=== PATIENT | female | born 1960 | race Caucasian/White ===

== ENCOUNTER → 2023-12-19 12:32 | Outpatient (REF) | payer OTHER, SELFPAY | LOC: RAD 12:32 | PROVIDERS: ATTENDING PHYSICIAN Internal Medicine Cardiovascular Disease; FAMILY PHYSICIAN Internal Medicine | DX: I65.23 Occlusion and stenosis of bilateral carotid arteries (principal) | CPT/HCPCS: 93880 ==

== ENCOUNTER → 2024-01-17 15:54 | Outpatient (REF) | payer OTHER, SELFPAY | LOC: WDC 15:54 | PROVIDERS: ATTENDING PHYSICIAN Obstetrics & Gynecology Gynecology; FAMILY PHYSICIAN Internal Medicine | DX: Z12.31 Encounter for screening mammogram for malignant neoplasm of breast (principal) | CPT/HCPCS: 77063; 77067 ==

== ENCOUNTER 2024-03-11 17:54 | Emergency (ER) | payer OTHER, SELFPAY ==
[2024-03-11 18:00] VITALS: BP 206/101
[2024-03-11 18:13] LABS: % Basophils 0.4 % (0-2); % Eosinophils 0.7 % (0-6); % Immature Granulocytes 0.2 % (0-0.5); % Lymphocytes 32.7 % (20.5-51.1); % Monocytes 9.9 % (1.7-9.3); % Neutrophils 56.1 % (42.2-75.2); Absolute Eosinophils 0.1 10^3/uL (0-0.7); Absolute Lymphocytes 2.8 10^3/uL (1.2-3.4); Absolute Monocytes 0.8 10^3/uL (0.1-0.6); Absolute Neutrophils 4.8 10^3/uL (1.4-6.5); Hematocrit 43.1 % (37.0-47.0); Hemoglobin 15.1 g/dL (12.0-16.0); Mean Corpuscular Hgb 33.3 pg (27.0-31.0); Mean Corpuscular Volume 95.1 fL (81.0-99.0); Nucleated Red Blood Cells % 0 %; Platelet Count 209 10^3/uL (130-400); Red Blood Cell Count 4.53 10^6/uL (4.20-5.40); Red Cell Dist. Width 12.6 % (11.5-14.5); White Blood Cell Count 8.5 10^3/uL (4.8-10.8)
[2024-03-11 18:32] LABS: ALT (SGPT) 36 U/L (0-35); AST (SGOT) 33 U/L (14-36); Albumin 4.5 g/dl (3.5-5.0); Alkaline Phosphatase 79 U/L (38-126); Blood Urea Nitrogen 14 mg/dl (7-17); Calcium 9.6 mg/dl (8.4-10.2); Carbon Dioxide 30 mmol/L (22-30); Chloride 102 mmol/L (98-107); Glucose 116 mg/dl (70-99); Magnesium 1.9 mg/dl (1.6-2.3); Potassium 3.9 mmol/L (3.5-5.1); Sodium 138 mmol/L (135-145); Total Bilirubin 0.5 mg/dl (0.2-1.3); Total Protein 6.4 g/dl (6.3-8.2); eGFR > 60.00
[2024-03-11 18:48] LABS: Troponin I < 0.012 ng/ml
[2024-03-11 19:03] LABS: TSH Reflex To Free T4 1.44 uIU/ml (0.47-4.68)
--- NOTE | 2024-03-11 20:01 | ED.GENMED ---
History of Present Illness
General
Chief Complaint: Heart Rate Problem
Time Seen by Provider: 03/11/24 19:36
History of Present Illness
History of Present Illness:
63-year-old female with history of hypertension, hyperlipidemia, coronary artery disease status post stent to the RCA in 2017 presents to the emergency department for evaluation of intermittent palpitations and elevated blood pressure ongoing for
the past several days. She took an EKG with her Apple Watch that was concerning for A-fib. She does have some symptoms currently. Denies any chest pain or difficulty breathing. Notes a history of very tough to control blood pressure issues,
currently on 100 mg of losartan and 30 mg of hydralazine, historically did not tolerate beta-blockers or calcium channel blockers due to side effects
Past History
Past History
ED Past Medical History: GERD, [place] and Other (Vasculitis, rheumatoid arthritis)
ED Past Surgical History: Cardiac (Cardiac stent) and Orthopedic (Left hip replacement)
Social History
Tobacco: Non-smoker
Alcohol: None
Drug: None
Living: with family
Employment: Employed
Family History
Family History: Hypertension
Review of Systems
Review of Systems
Allergies reviewed?: Yes
All Other Systems: ROS reviewed and negative except as documented in HPI and ROS
Phy Exam
Physical Exam
Physical Exam:
GEN: Well appearing, NAD, WDWN
HEENT: Oral mucosa moist, no scleral icterus
Cardiac: Regular rate and rhythm with occasional extrasystoles, no murmurs
Lung: No respiratory distress, no tachypnea
MSK: No gross deformity or injuries
Skin: Good color, no pallor or jaundice, no rashes
Neuro: AO x3, moves all extremities freely
Psych: Calm, cooperative
Course
Orders/Labs/Results
Orders:
Orders
03/11/24 17:55
EKG [Electrocardiogram (*1)] Urgent
Reason for Study: Atrial Fibrillation
EKG- Treatment ONCE
03/11/24 18:06
Complete Blood Count/With Diff Urgent
Comprehensive Metabolic Panel Urgent
Magnesium Urgent
TSH Reflex To Free T4 Urgent
Troponin I Urgent
Abnormal Lab Results
03/11/24
18:06
MCH 33.3 H pg
(27.0-31.0)
Absolute Monos (auto) 0.8 H 10^3/uL
(0.1-0.6)
Monocytes % 9.9 H %
(1.7-9.3)
Glucose 116 H mg/dl
(70-99)
ALT 36 H U/L
(0-35)
03/11/24 18:06
03/11/24 18:06
Vital Signs
Initial and Last Documented VS:
Initial Vital Signs
Temp Pulse Resp BP Pulse Ox
98.2 F 78 18 206/101 98
03/11/24 18:00 03/11/24 18:00 03/11/24 18:00 03/11/24 18:00 03/11/24 18:00
Last Documented Vital Signs
Temp Pulse Resp BP Pulse Ox
98.2 F 78 18 206/101 98
03/11/24 18:00 03/11/24 18:00 03/11/24 18:00 03/11/24 18:00 03/11/24 18:00
MDM/Problems Addressed
MDM/Problems Addressed:
Labs are reassuring. EKG and telemetry confirms presence of PACs likely causing the patient's symptoms. This was also noted on her rhythm strip through her Apple Watch that I personally reviewed. She is hypertensive. I discussed with the patient
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 She has no clinical signs or symptoms of endorgan damage due to hypertensive
crisis thus no need for urgent blood pressure lowering at this time
Comment
Comment:
EKG independently interpreted by me shows a normal sinus rhythm with occasional PACs, rate of [address] changes concerning for ischemia
*Critical Care Note
Total Time (30-74mins, 75-104mins- exclusive of procedures): Not Applicable
ED Attending Note
-
Portions of this chart may have been created with voice recognition software.� Occasional wrong word or��sound alike� substitutions may have occurred due to the inherent limitations of voice recognition software.
Discharge Plan
Departure
Patient Disposition: Home (Routine Discharge)
Date of Disposition: 03/11/24
Time of Disposition: 20:02
Patient with high blood pressure during this ER visit?: No
Discharge Problem:
Atrial contractions, premature, Hypertension
Instructions: Palpitations (DC)
Prescriptions:
No Action
aspirin 81 MG tablet,chewable
81 mg PO DAILY 0RF
Rituxan 500 MG/50 ML concentrate
500 mg IV [id number]
Repatha Syringe 140 MG/ML syringe
140 mg SQ Q2W
metoprolol succinate 25 MG tablet extended release 24 hr
25 mg PO DAILY
losartan 50 MG tablet
100 mg PO DAILY
hydralazine 10 MG tablet
10 mg PO PRN PRN (Reason: .rituxan infusion)
famotidine 20 MG tablet
20 mg PO PRN PRN (Reason: reflux)
cholecalciferol (vitamin D3) 1,000 UNITS tablet
2,000 units PO DAILY
prednisone 20 mg Tablet
20 mg PO DAILY
diphenhydramine HCl [Benadryl] 25 mg Capsule
25 mg PO HS PRN (Reason: reaction)
acetaminophen 500 mg Capsule
1,000 mg PO Q6H PRN (Reason: reaction)
Activity Restrictions/Additional Instructions:
Discuss further blood pressure medication options with your primary doctor and/or xerox machine mechanic
Typically I would recommend medications like metoprolol or atenolol, OR diltiazem for your blood pressure and PACs; however, you reportedly have not tolerated these medicines in the past
Interventions
Interventions:
*Risk Screen - Suicide Last Done: 03/11/24 18:00
*General Assessment Last Done: 03/11/24 18:00
*Neglect/Abuse Screening Last Done: 03/11/24 18:00
*Nursing Disposition Last Done: 03/11/24 20:13
ED- Cardiac Assessment Last Done: 03/11/24 19:49
ED- Pulmonary Assessment Last Done: 03/11/24 19:49
Discharge Date and Time
Print Language: ICELANDIC
== END 2024-03-11 20:13 | disposition home or self-care (01) ==
LOC: EMR 17:54
PROVIDERS: Emergency Medicine; EMERGENCY PHYSICIAN Emergency Medicine
DX: R00.2 Palpitations (principal); I10 Essential (primary) hypertension; E78.00 Pure hypercholesterolemia, unspecified; I25.10 Atherosclerotic heart disease of native coronary artery without angina pectoris; K21.9 Gastro-esophageal reflux disease without esophagitis; I25.2 Old myocardial infarction; I77.6 Arteritis, unspecified; M06.9 Rheumatoid arthritis, unspecified; Z82.49 Family history of ischemic heart disease and other diseases of the circulatory system; Z95.5 Presence of coronary angioplasty implant and graft; Z96.642 Presence of left artificial hip joint; I49.1 Atrial premature depolarization
CPT/HCPCS: 99283; 80053; 83735; 84443; 84484; 85025; 93005

== ENCOUNTER → 2024-04-11 08:39 | Outpatient (REF) | payer OTHER, SELFPAY | LOC: RCS 08:39 | PROVIDERS: ATTENDING PHYSICIAN Physician Assistant; FAMILY PHYSICIAN Internal Medicine; REFERRING PHYSICIAN Internal Medicine Cardiovascular Disease | DX: I10 Essential (primary) hypertension (principal); I25.10 Atherosclerotic heart disease of native coronary artery without angina pectoris; I11.9 Hypertensive heart disease without heart failure; R07.89 Other chest pain; R06.02 Shortness of breath | CPT/HCPCS: 93306 ==

== ENCOUNTER → 2024-04-11 11:27 | Outpatient (REF) | payer OTHER, SELFPAY | LOC: DHCBC/DCA 11:27 | PROVIDERS: ATTENDING PHYSICIAN Physician Assistant; FAMILY PHYSICIAN Internal Medicine | DX: I10 Essential (primary) hypertension (principal); I25.10 Atherosclerotic heart disease of native coronary artery without angina pectoris; I11.9 Hypertensive heart disease without heart failure; R07.89 Other chest pain; R06.02 Shortness of breath | CPT/HCPCS: 78452; 93017; A9500 ==